=== PATIENT | male | born 1990 | race Hispanic/Latino ===

== ENCOUNTER 2020-11-19 17:40 | Emergency (ER) | payer BC ==
[2020-11-19] MEDS ORDERED: KETOROLAC 30 MG/1 ML INJ IM ONE (18:32)
--- NOTE | 2020-11-19 18:43 | Emergency Department Report ---
ED General Adult HPI - General Chief complaint: Back Pain/Injury Stated complaint: POSSIBLE KIDNEY STONE PUI?: No Time Seen by Provider: 11/19/20 18:31 Source: patient Mode of arrival: Ambulatory Limitations: No Limitations - History of Present Illness Initial comments: This is a 30-year-old male with no prior medical history presents the ED complaining of left-sided flank pain that began a week ago. Patient states that pain subsided and today he began experiencing pain with urination. Patient states that he had a pain when he tried to urinate. Doucette like there was something blocking his urination. Patient states he was still able to urinate, he denies fever, chills, nausea vomiting - Related Data Previous Rx's Medication Instructions Recorded Last Taken Type Ciprofloxacin HCl [Ciprofloxacin 750 mg PO BID #10 tablet 11/20/20 Unknown Rx TAB] Tamsulosin [Flomax] 0.4 mg PO QDAY #5 cap 11/20/20 Unknown Rx Allergies Allergy/AdvReac Type Severity Reaction Status Date / Time No Known Allergies Allergy Unverified 11/19/20 17:44 ED Review of Systems ROS: Stated complaint: POSSIBLE KIDNEY STONE Other details as noted in HPI Comment: All other systems reviewed and negative ED Past Medical Hx - Past Medical History Previous Medical History?: No - Surgical History Past Surgical History?: No - Medications Home Medications: Home Medications Medication Instructions Recorded Confirmed Last Taken Type Ciprofloxacin HCl [Ciprofloxacin 750 mg PO BID #10 tablet 11/20/20 Unknown Rx TAB] Tamsulosin [Flomax] 0.4 mg PO QDAY #5 cap 11/20/20 Unknown Rx ED Physical Exam - General Limitations: No Limitations General appearance: alert, in no apparent distress - Head Head exam: Present: atraumatic, normocephalic - Eye Eye exam: Present: normal appearance - ENT ENT exam: Present: mucous membranes moist - Neck Neck exam: Present: normal inspection - Respiratory Respiratory exam: Present: normal lung sounds bilaterally. Absent: respiratory distress - Cardiovascular Cardiovascular Exam: Present: regular rate, normal rhythm. Absent: systolic murmur, diastolic murmur, rubs, gallop - GI/Abdominal GI/Abdominal exam: Present: soft, normal bowel sounds. Absent: distended, tenderness - Rectal Rectal exam: Present: deferred - exam: Absent: testicular tenderness, urethral discharge, scrotal swelling, circumcision External exam: Present: normal external exam, other (Very thin urethral meatus). Absent: erythema, swelling, bleeding - Extremities Exam Extremities exam: Present: normal inspection, full ROM - Back Exam Back exam: Present: normal inspection, full ROM. Absent: tenderness, CVA tenderness (R), CVA tenderness (L) - Neurological Exam Neurological exam: Present: alert, oriented X3, normal gait - Psychiatric Psychiatric exam: Present: normal affect, normal mood - Skin Skin exam: Present: warm, dry, intact, normal color. Absent: rash ED Course Vital Signs 11/19/20 11/19/20 11/19/20 17:44 20:12 20:42 Temperature 98 F Pulse Rate 103 H Respiratory 18 18 18 Rate Blood Pressure 168/89 [Right] O2 Sat by Pulse 98 Oximetry 11/19/20 11/20/20 23:17 01:10 Temperature 97.6 F Pulse Rate 103 H Respiratory 18 18 Rate Blood Pressure 115/52 [Right] O2 Sat by Pulse 96 Oximetry ED Medical Decision Making - Lab Data Result diagrams: 11/19/20 18:56 11/19/20 18:56 - Radiology Data Radiology results: report reviewed, image reviewed ULTRASOUND RENAL INDICATION / CLINICAL INFORMATION: dysuria, flank pain. COMPARISON: None available. FINDINGS: Technically difficult examination secondary to patient body habitus, positioning, and bowel gas. RIGHT KIDNEY: Length = 10.4 cm. - Echogenicity: Normal. - Cortical Thickness: Normal. - Hydronephrosis: None. - Cyst or mass: No significant abnormality. - Stones: None seen. LEFT KIDNEY: Length = 11.4 cm. - Echogenicity: Normal. - Cortical Thickness: Normal. - Hydronephrosis: None. - Cyst or mass: No significant abnormality. - Stones: None seen. URINARY BLADDER: No significant abnormality. FREE FLUID: Possible small-moderate amount of abdominal free fluid. ADDITIONAL FINDINGS: None. IMPRESSION: 1. Technically difficult examination without significant abnormality of the visualized kidneys and bladder. 2. Diffuse hypoechogenicity surrounding the left kidney could represent a small to-moderate amount of abdominal free fluid. Consider further evaluation as warranted. Signer Name: Carlos Thomas MD Signed: 11/19/2020 10:31 PM Workstation Name: [id number] Transcribed By: RH Dictated By: CARLOS THOMAS III Electronically Authenticated By: CARLOS THOMAS III Signed Date/Time: 11/19/20 3107 - Medical Decision Making This 30-year-old male presents to the ED with urinary retention Labs show elevation of white count. Patient better after receiving fluids and pain medication in the ED. Urinalysis mildly positive for 1+ bacteria Renal ultrasound shows no abnormalities as seen above. Patient did note that his flank pain resolved prior to coming today. We will treat patient for UTI. Catheter was inserted to release about 400 cc of urine. Patient feels much better prior to discharge. He states he will call urology and follow-up in the morning Discussed with patient to follow-up with urology within 2 days. Referrals given. - Differential Diagnosis Urethral stone, bladder retention, UTI, acute Howie, kidney stone Critical care attestation.: If time is entered above; I have spent that time in minutes in the direct care of this critically ill patient, excluding procedure time. ED Disposition Clinical Impression: Dysuria, UTI (urinary tract infection), Urinary retention Disposition: - TO HOME OR SELFCARE Is pt being admited?: No Does the pt Need Aspirin: No Condition: Stable Instructions: Ureteroscopy, Urinary Tract Infection, Adult, Ehng-bp-Crot, Acute Urinary Retention, Male Additional Instructions: Make sure to follow up with the primary care physician as discussed. Take all your medications as you've been prescribed. If you have any worsening symptoms or develop new symptoms please return to ED immediately. Prescriptions: Ciprofloxacin HCl [Ciprofloxacin TAB] 750 mg PO BID #10 tablet Tamsulosin [Flomax] 0.4 mg PO QDAY #5 cap Referrals: ILA OLIVAS MD [Primary Care Provider] - 3-5 Days DONNIE GONZALES MD [Referring] - 3-5 Days LUZ MARIA PRATT MD [Referring] - 3-5 Days [facility] [Provider Group] - 3-5 Days Forms: Work/School Release Form Time of Disposition: 01:28
--- NOTE | 2020-11-19 19:02 | XRay Report ---
Abdomen single view INDICATION: Abdominal pain IMPRESSION: Nonobstructive bowel gas pattern. Detection of nephrolithiasis is difficult given body lockwood bitus. Ultrasound may be useful for further evaluation. Signer Name: All Roa MD Signed: 11/19/2020 6:58 PM Workstation Name: [id number]
[2020-11-19 19:11] LABS: Basophils # (Auto) 0.1 K/mm3 (0.0-0.1); Basophils % (Auto) 0.3 % (0.0-1.8); Eosinophils % (Auto) 0.2 % (0.0-4.3); Hematocrit 44.5 % (35.5-45.6); Hemoglobin 15.3 gm/dl (11.8-15.2); Lymphocytes # (Auto) 1.7 K/mm3 (1.2-5.4); Lymphocytes % (Auto) 10.3 % (13.4-35.0); Mean Corpuscular HGB Conc 35 % (32-34); Mean Corpuscular Volume 90 fl (84-94); Monocytes # (Auto) 0.8 K/mm3 (0.0-0.8); Monocytes % (Auto) 4.6 % (0.0-7.3); Platelet Count 288 K/mm3 (140-440); Red Blood Count 4.95 M/mm3 (3.65-5.03); Red Cell Distribution Width 13.4 % (13.2-15.2)
[2020-11-19 19:34] LABS: Alanine Aminotransferase 29 units/L (7-56); Albumin 4.2 g/dL (3.9-5); BUN/Creatinine Ratio 13; Blood Urea Nitrogen 12 mg/dL (9-20); Calcium 9.5 mg/dL (8.4-10.2); Hemolysis Index 11
[2020-11-19] MEDS ORDERED: SODIUM CHLORIDE 0.9% 1000 ML 1,000 ML IV ONE (20:24)
[2020-11-19] MEDS ORDERED: TAMSULOSIN 0.4 MG CAP PO ONE (20:24)
[2020-11-19] MEDS ORDERED: MORPHINE 4 MG/1 ML INJ IV ONE (22:33)
--- NOTE | 2020-11-19 22:36 | Ultrasound Report ---
ULTRASOUND RENAL INDICATION / CLINICAL INFORMATION: dysuria, flank pain. COMPARISON: None available. FINDINGS: Technically difficult examination secondary to patient body habitus, positioning, and bowel gas. RIGHT KIDNEY: Length = 10.4 cm. - Echogenicity: Normal. - Cortical Thickness: Normal. - Hydronephrosis: None. - Cyst or mass: No significant abnormality. - Stones: None seen. LEFT KIDNEY: Length = 11.4 cm. - Echogenicity: Normal. - Cortical Thickness: Normal. - Hydronephrosis: None. - Cyst or mass: No significant abnormality. - Stones: None seen. URINARY BLADDER: No significant abnormality. FREE FLUID: Possible small-moderate amount of abdominal free fluid. ADDITIONAL FINDINGS: None. IMPRESSION: 1. Technically difficult examination without significant abnormality of the visualized kidneys and bl adder. 2. Diffuse hypoechogenicity surrounding the left kidney could represent a small to-moderate amount of abdominal free fluid. Consider further evaluation as warranted. Signer Name: Yogi Thomas MD Signed: 11/19/2020 10:31 PM Workstation Name: [id number]
[2020-11-20 01:05] LABS: Bacteria,Urine 1+ /HPF (Negative); Bilirubin,Urine NEG (Negative); Blood,Urine NEG (Negative); Color,Urine Yellow (Yellow); Mucus,Urine 1+ /HPF; Urobilinogen,Urine < 2.0 mg/dL (<2.0)
[2020-11-20 01:12] VITALS: BP 115/52
== END 2020-11-20 01:47 | disposition home or self-care (01) ==
LOC: ED 17:40
DX: N39.0 Urinary tract infection, site not specified (principal); R33.9 Retention of urine, unspecified; R30.0 Dysuria; Z79.2 Long term (current) use of antibiotics; Z79.899 Other long term (current) drug therapy
CPT/HCPCS: 36415; 74018; 76770; 80053; 81001; 85025; 87086; 93005; 96361; 96372; 96374; 99284; J1885; J2270; J7030